=== PATIENT | male | born 1985 | race African-American/Black ===

== ENCOUNTER 2020-08-23 08:14 | Emergency (ER) | payer MEDICAID ==
[~2020-08-23] VITALS: Ht 175.3 cm; Wt 98.0 kg
--- NOTE | 2020-08-23 09:00 | NUR ---
PT STATES HE HAS BROWNING FOR 3 WEEKS. SENSITIVE TO LIGHT, NO N/V. DENIES CP. PT HTN 209/109. COMPLIANT W BP MEDS. TOOK A NORCO LAST NIGHT. ON CARD MONITOR
[2020-08-23] MEDS ORDERED: KETOROLAC 30 MG/1 ML ONE (09:10)
[2020-08-23] MEDS ORDERED: DIPHENHYDRAMINE 50 MG/ML, 1ML ONE (09:10)
[2020-08-23] MEDS ORDERED: PROCHLORPERAZINE 5 MG/ML, 2ML ONE (09:10)
[2020-08-23] MEDS ORDERED: DIPHENHYDRAMINE 50 MG/ML, 1ML IVPush ONE (09:30)
[2020-08-23] MEDS ORDERED: KETOROLAC 30 MG/1 ML IVPush ONE (09:30)
[2020-08-23] MEDS ORDERED: SODIUM CHLORIDE FLUSH 10ML SYR IVF ONE (09:30)
[2020-08-23] MEDS ORDERED: SODIUM CHLORIDE 0.9% 1,000ML IVBOLUS ONE (09:30)
[2020-08-23] MEDS ORDERED: PROCHLORPERAZINE 5 MG/ML, 2ML IVPush ONE (09:30)
[2020-08-23 09:35] LABS: ALANINE AMINOTRANSFERASE 42 U/L (12-78); ALBUMIN 4.1 g/dL (3.4-5.0); ANION GAP 7 mmol/L (5-15); CALCIUM 9.4 mg/dL (8.5-10.1); CHLORIDE 107 mmol/L (98-107); CREATININE 1.02 mg/dL (0.7-1.3)
[2020-08-23 09:37] LABS: ALKALINE PHOSPHATASE 86 U/L (45-117); BASOPHILS % (AUTO) 1 % (0-1); BILIRUBIN,TOTAL 0.6 mg/dL (0.2-1.0); EOSINOPHILS % (AUTO) 3 % (1-7); LYMPHOCYTES % (AUTO) 24 % (22-44); MEAN CORPUSCULAR HEMOGLOBIN 23.1 pg (27.5-34.5); MEAN CORPUSCULAR HGB CONC 33.2 g/dL (33.2-36.2); MEAN PLATELET VOLUME 10.3 fL (7.4-10.4); MONOCYTES % (AUTO) 8 % (2-9); NEUTROPHILS % (AUTO) 65 % (42-75); PLATELET COUNT 155 x10^3/uL (130-400); RED BLOOD COUNT 7.32 x10^6/uL (4.38-5.82)
[2020-08-23 09:50] LABS: TROPONIN I < 0.015 ng/mL (0.000-0.045)
--- NOTE | 2020-08-23 09:50 | NUR ---
PT BACK FROM CT
--- NOTE | 2020-08-23 09:51 | NUR ---
MEDICATED FOR HEADACHE. PT RESTING. IVF
[2020-08-23] MEDS ORDERED: DEXAMETHASONE 4 MG/ML, 5ML ONE (10:42)
[2020-08-23] MEDS ORDERED: ENALAPRILAT 1.25 MG/ML, 1ML ONE (10:43)
[2020-08-23] MEDS ORDERED: MAGNESIUM SULFATE PMX 2GM/50ML 50 ML ONE (10:43)
--- NOTE | 2020-08-23 10:55 | NUR ---
PT AMBULATED TO BATHROOM W STEADY GAIT. MEDICATED PER ORDERS.
[2020-08-23] MEDS ORDERED: ENALAPRILAT 1.25 MG/ML, 2ML IV ONE (11:00)
[2020-08-23] MEDS ORDERED: DEXAMETHASONE 4 MG/ML, 1ML IVPush ONE (11:00)
[2020-08-23] MEDS ORDERED: MAGNESIUM SULFATE PMX 2GM/50ML 50 ML IV ONE (11:00)
--- NOTE | 2020-08-23 11:54 | NUR ---
PT STATES HEADACHE IS BETTER. BP IMPROVED.
[2020-08-23 14:20] VITALS: BP 164/100
--- NOTE | 2020-08-23 14:20 | NUR ---
TASK RN: PT REPORTS IMPROVED BROWNING, "I CAN ACTUALLY OPEN MY EYES". FRIEND PROVIDED RX LIST, GIVEN TO ERP. POC IS DC. PT AWARE. AWAITING DC INSTRUCTIONS.
--- NOTE | 2020-08-23 14:31 | NUR ---
TASK RN: DC EDUCATION PROVIDED BY BATSHEVA BREWER. PT AMBULATED STEADILY TO DC WITH FRIEND. FRIEND TO TRANSPORT PT HOME.
== END 2020-08-23 14:33 | disposition home or self-care (01) ==
LOC: ED 13:30
DX: I10 Essential (primary) hypertension (principal); G43.909 Migraine, unspecified, not intractable, without status migrainosus; H57.89 Other specified disorders of eye and adnexa; R00.1 Bradycardia, unspecified
CPT/HCPCS: 36415; 70450; 80053; 83735; 84484; 85025; 93005; 96361; 96365; 96366; 96375; 99285; J0780; J1100; J1200; J1885; J3475; J7030

== ENCOUNTER 2020-08-31 16:04 | Emergency (ER) | payer MEDICAID ==
[~2020-08-31] VITALS: Ht 175.3 cm; Wt 92.2 kg
--- NOTE | 2020-08-31 16:12 | NUR ---
CODE 250 CALLED WHILE PT SITTING IN CAR IN [address]. PT WEARING SLEEP MASK. REFUSED TO REMOVE MASK, STATES "THE LIGHT HURTS MY EYES". PT TO REGISTRATION PER WC.
--- NOTE | 2020-08-31 16:43 | NUR ---
PT HAS CO HIGH BP AND HEADACHE. WAS UNABLE TO FILL MEDICATIONS PRESCRIBED FROM LAST VISIT BECAUSE MEDS WERE NOT AVAILABLE. ONLY HAS LISINOPRIL TO TAKE.
[2020-08-31] MEDS ORDERED: DIPHENHYDRAMINE 50 MG/ML, 1ML IVPush ONE (17:30)
[2020-08-31] MEDS ORDERED: MAGNESIUM SULFATE PMX 2GM/50ML 50 ML IV ONE (17:30)
[2020-08-31] MEDS ORDERED: METOCLOPRAMIDE 5 MG/ML, 2ML IVPush ONE (17:30)
[2020-08-31] MEDS ORDERED: DEXAMETHASONE 4 MG/ML, 1ML IVPush ONE (17:30)
[2020-08-31] MEDS ORDERED: METOCLOPRAMIDE 5 MG/ML, 2ML ONE (17:41)
[2020-08-31] MEDS ORDERED: DEXAMETHASONE 4 MG/ML, 1ML ONE (17:41)
[2020-08-31] MEDS ORDERED: DIPHENHYDRAMINE 50 MG/ML, 1ML ONE (17:41)
[2020-08-31] MEDS ORDERED: MAGNESIUM SULFATE PMX 2GM/50ML 50 ML ONE (17:41)
--- NOTE | 2020-08-31 18:02 | NUR ---
MEDICATED PER ORDERS, PT RESTING, BP HIGH
--- NOTE | 2020-08-31 18:49 | NUR ---
PT STATES HEADACH IS BETTER.
[2020-08-31] MEDS ORDERED: ENALAPRILAT 1.25 MG/ML, 1ML ONE (18:57)
[2020-08-31] MEDS ORDERED: ENALAPRILAT 1.25 MG/ML, 2ML IV ONE (19:00)
[2020-08-31 19:23] VITALS: BP 152/95
[2020-08-31] MEDS ORDERED: AMLODIPINE 10 MG TAB PO ONE (19:30)
[2020-08-31] MEDS ORDERED: AMLODIPINE 5 MG TABLET ONE (19:37)
[2020-08-31] MEDS ORDERED: OMNIPAQUE 350 MG/ML, 100ML BOTTLE ONE (23:30)
== END 2020-08-31 19:48 | disposition home or self-care (01) ==
LOC: ED 16:18
DX: G43.019 Migraine without aura, intractable, without status migrainosus (principal); I10 Essential (primary) hypertension
CPT/HCPCS: 36415; 70496; 84443; 96365; 96366; 96375; 99285; J1100; J1200; J2765; J3475; Q9967

== ENCOUNTER 2020-09-01 18:22 | Emergency (ER) | payer MEDICAID ==
[~2020-09-01] VITALS: Ht 175.3 cm; Wt 92.3 kg
[2020-09-01] MEDS ORDERED: SODIUM CHLORIDE FLUSH 10ML SYR IVF ONE ×2 (19:00→19:30)
[2020-09-01] MEDS ORDERED: SODIUM CHLORIDE 0.9% 1,000ML IVBOLUS ONE (19:00)
--- NOTE | 2020-09-01 19:11 | NUR ---
PT TO ROOM 29 W/ C/O HTN URGENCY AND MIGRAINE BROWNING. PT STATES WHEN HIS BP IS ELEVATED HIS HEADACHE STARTS. WHEN BP IS DOWN HE HAS NO BROWNING. PT RESTING ON GURNEY. NADN. MONITORS APPLIED. HTN PRESENT. WARM BLANKET PROVIDED. CALL LIGHT IN REACH. ERP DR. REDDING AT BEDSIDE.
[2020-09-01 19:13] LABS: BASOPHILS % (AUTO) 1 % (0-1); EOSINOPHILS % (AUTO) 2 % (1-7); LYMPHOCYTES % (AUTO) 35 % (22-44); MEAN CORPUSCULAR HEMOGLOBIN 22.9 pg (27.5-34.5); MEAN CORPUSCULAR HGB CONC 32.8 g/dL (33.2-36.2); MEAN PLATELET VOLUME 9.8 fL (7.4-10.4); MONOCYTES % (AUTO) 6 % (2-9); NEUTROPHILS % (AUTO) 57 % (42-75); PLATELET COUNT 162 x10^3/uL (130-400); RED BLOOD COUNT 6.68 x10^6/uL (4.38-5.82); RED CELL DISTRIBUTION WIDTH 14.9 % (9.4-14.8)
[2020-09-01] MEDS ORDERED: DIPHENHYDRAMINE 50 MG/ML, 1ML ONE (19:22)
[2020-09-01] MEDS ORDERED: KETOROLAC 30 MG/1 ML ONE (19:22)
[2020-09-01] MEDS ORDERED: METOCLOPRAMIDE 5 MG/ML, 2ML ONE ×2 (19:22→20:23)
[2020-09-01 19:25] LABS: ANION GAP 7 mmol/L (5-15); CALCIUM 9.4 mg/dL (8.5-10.1); CHLORIDE 105 mmol/L (98-107); CREATININE 0.97 mg/dL (0.7-1.3)
[2020-09-01 19:28] LABS: TROPONIN I < 0.015 ng/mL (0.000-0.045)
[2020-09-01] MEDS ORDERED: MAGNESIUM SULFATE 1 GM/2 ML IVPush ONE (19:30)
[2020-09-01] MEDS ORDERED: KETOROLAC 30 MG/1 ML IVPush ONE (19:30)
[2020-09-01] MEDS ORDERED: DIPHENHYDRAMINE 50 MG/ML, 1ML IVPush ONE (19:30)
[2020-09-01] MEDS ORDERED: METOCLOPRAMIDE 5 MG/ML, 2ML IVPush ONE (19:30)
[2020-09-01] MEDS ORDERED: DEXAMETHASONE 4 MG/ML, 1ML IVPush ONE (19:30)
[2020-09-01] MEDS ORDERED: PROCHLORPERAZINE 5 MG/ML, 2ML IVPush ONE (19:30)
[2020-09-01] MEDS ORDERED: PROCHLORPERAZINE 5 MG/ML, 2ML ONE (19:31)
[2020-09-01] MEDS ORDERED: DEXAMETHASONE 4 MG/ML, 1ML ONE (19:31)
[2020-09-01 19:48] LABS: <PLATELET ESTIMATE> ADEQUATE; <PLT MORPHOLOGY> NORMAL PLT MORPH; ANISOCYTOSIS 1+; HYPOCHROMIA 1+; MICROCYTOSIS 1+
[2020-09-01] MEDS ORDERED: MAGNESIUM SULFATE/D5W 100 ML IVPB ONE (20:00)
[2020-09-01] MEDS ORDERED: MAGNESIUM SULFATE/D5W 100 ML ONE ×2 (20:13→20:23)
--- NOTE | 2020-09-01 20:21 | NUR ---
REPORT GIVEN TO BATSHEVA MILLER.
--- NOTE | 2020-09-01 20:34 | NUR ---
PATIENT TOLERATING INTERVENTIONS WELL. UPDATED ON PLAN OF CARE. NO NOTED ADDITIONAL NEEDS AT THIS TIME. CALL LIGHT WITHIN REACH, BED IN LOWEST LOCKED POSITION, SIDE RAILS X 2 UP. VSS. WILL CONTINUE TO MONITOR.
[2020-09-01] MEDS ORDERED: hydrALAzine 20 MG/ML, 1ML ONE (20:59)
[2020-09-01] MEDS ORDERED: hydrALAzine 20 MG/ML, 1ML IV ONE (21:00)
--- NOTE | 2020-09-01 21:10 | NUR ---
UPDATED ON PLAN OF CARE. NO NOTED ADDITIONAL NEEDS AT THIS TIME. CALL LIGHT WITHIN REACH, BED IN LOWEST LOCKED POSITION, SIDE RAILS X 2 UP. VSS. WILL CONTINUE TO MONITOR.
[2020-09-01 22:26] VITALS: BP 185/114
== END 2020-09-01 22:28 | disposition home or self-care (01) ==
LOC: ED 22:25
DX: G44.019 Episodic cluster headache, not intractable (principal); R07.89 Other chest pain; I10 Essential (primary) hypertension
CPT/HCPCS: 36415; 71045; 80048; 82040; 84484; 85025; 93005; 96361; 96365; 96375; 99285; J0360; J0780; J1100; J1200; J1885; J7030